=== PATIENT | female | born 1940 | race Caucasian/White ===

== ENCOUNTER → 2017-12-18 10:34 | Outpatient (CLI) | payer MEDICARE, BC, SELFPAY ==
--- NOTE | 2017-12-18 | DI.MRI.S_ITS ---
PROCEDURE: MR HEAD/BRAIN WO/W CON INDICATIONS: AUDITORY HALLUCINATIONS TECHNIQUE: Noncontrast axial T1 spin echo, axial T2 fast spin echo, sagittal and axial FLAIR, coronal T2 fast spin echo, axial gradient echo, axial diffusion and ADC through the brain. After the administration of contrast, axial and coronal T1 spin echo with fat saturation through the brain. COMPARISON: [facility], , MRI HEAD W/O CONTRAST, 01/19/2006, 7:09. [facility], , CT HEAD W/O CONTRAST, 04/10/2006, 7:08. [facility], , CT HEAD W/O CONTRAST, 03/16/2006, 7:09. [facility], , CT HEAD W/O CONTRAST, 02/02/2006, 7:09. FINDINGS: Image quality: Excellent. CSF spaces: Basal cisterns are patent. No extra-axial fluid collections. Ventricles are prominent in size but symmetrical in shape. Brain: There is a 1.4 cm hemangioma along the left posterior falx, which is unchanged in size from the prior examination. There is no significant mass effect. No midline shift. No intracranial bleeds or masses. No abnormal intracranial enhancement. There is moderate cerebral volume loss for age. There is moderate periventricular white matter chronic small vessel ischemic change. The brainstem appears normal. Diffusion-weighted images demonstrate no acute ischemic insults. No chronic ischemic insults. Normal intravascular flow voids are present. Skull and face: Calvarial marrow is normal in signal. Orbits appear normal. Sinuses: Sinuses and mastoids appear clear. IMPRESSION: 1. No acute intracranial abnormalities. 2. Moderate cerebral volume loss and chronic microvascular ischemic changes. 3. A 1.4 cm left parafalcine meningioma is unchanged. Dictated by: Christos De Los Santos M.D. on 12/18/2017 at 11:57 Transcribed by: ALEX on 12/18/2017 at 12:08 Approved by: Christos De Los Santos M.D. on 12/18/2017 at 17:53
== END ==
PROVIDERS: PCP Family Medicine Geriatric Medicine; Visit Provider Physician Assistant
DX: R44.0 Auditory hallucinations (principal); D32.0 Benign neoplasm of cerebral meninges
CPT/HCPCS: 70553